=== PATIENT | male | born 1960 | race Caucasian/White ===

== ENCOUNTER 2017-12-18 16:58 | Inpatient (IN) | payer OTHER ==
[2017-12-18 19:43] VITALS: BMI 23.6
--- NOTE | 2017-12-18 21:34 | HP ---
CIWA Score - CIWA Score Nausea/Vomitin Muscle Tremors: 6 Anxiety: 4-Mod. Anxious/Guarded Agitation: 2 Paroxysmal Sweats: 3 Orientation: 0-Oriented Tacttile Disturbances: 0-None Auditory Disturbances: 0-None Visual Disturbances: 0-None Headache: 2-Mild CIWA-Ar Total Score: 19 Admission ROS S - HPI Chief Complaint: Alcohol withdrawal symptoms Allergies/Adverse Reactions: Allergies Allergy/AdvReac Type Severity Reaction Status Date / Time No Known Allergies Allergy Verified 12/18/17 21:30 History of Present Illness: 57 years old male with a long history of alcohol dependence is seeking admission to detox. Patient has been in previous detox and reports insignificant period of sobriety. He has past medical history of HIV+ and HTN. Denies suicide attempt or suicidal ideation at this time. Exam Limitations: No Limitations - Ebola screening Have you traveled outside of the country in the last 21 days: No Have you had contact with anyone from an Ebola affected area: No Have you been sick,other than usual withdrawal symptoms: No Do you have a fever: No - Review of Systems Constitutional: Chills, Loss of Appetite, Malaise, Night Sweats, Changes in sleep EENT: reports: Nose Congestion Respiratory: reports: No Symptoms reported Cardiac: reports: No Symptoms Reported GI: reports: Poor Appetite, Poor Fluid Intake, Abdominal cramping : reports: No Symptoms Reported Musculoskeletal: reports: Back Pain, Muscle Pain, Muscle Weakness Integumentary: reports: No Symptoms Reported Neuro: reports: Tingling, Tremors Endocrine: reports: No Symptoms Reported Hematology: reports: No Symptoms Reported Psychiatric: reports: No Sypmtoms Reported, Orientated x3, Anxious Other Systems: Reviewed and Negative Patient History - Patient Medical History Hx Anemia: No Hx Asthma: No Hx Chronic Obstructive Pulmonary Disease (COPD): No Hx Cancer: No Hx Cardiac Disorders: No Hx Congestive Heart Failure: No Hx Hypertension: Yes Hx Hypercholesterolemia: No Hx Pacemaker: No HX Cerebrovascular Accident: No Hx Seizures: No Hx Dementia: No Hx Diabetes: No Hx Gastrointestinal Disorders: No Hx Liver Disease: No Hx Genitourinary Disorders: No Hx Sexually Transmitted Disorders: Yes (HIV+) Hx Renal Disease (ESRD): No Hx Thyroid Disease: No Hx Human Immunodeficiency Virus (HIV): Yes (diagnosed in 2001) Hx Hepatitis C: No Hx Depression: No Hx Suicide Attempt: No (Denies suicidal ideation at this time) Hx Bipolar Disorder: No Hx Schizophrenia: No - Patient Surgical History Past Surgical History: No - PPD History Previous Implant?: Yes Documented Results: Negative w/o proof Implanted On Prior [facility] Admission?: No PPD to be Administered?: Yes - Reproductive History Patient is a Female of Child Bearing Age (11 -55 yrs old): No (MALE) - Smoking Cessation Smoking history: Current every day smoker Have you smoked in the past 12 months: Yes Aproximately how many cigarettes per day: 10 Hx Chewing Tobacco Use: No Initiated information on smoking cessation: Yes 'Breaking Loose' booklet given: 12/18/17 Family Disease History - Family Disease History Family History: Denies Admission Physical Exam [facility] - Vital Signs Vital Signs: Vital Signs - 24 hr 12/18/17 19:41 Temperature 97 F L Pulse Rate 114 H Respiratory 18 Rate Blood Pressure 144/94 - Physical General Appearance: Yes: Moderate Distress HEENTM: Yes: EOMI, Normal Voice, OSVALDO, Nasal Congestion Respiratory: Yes: Lungs Clear, Normal Breath Sounds, No Respiratory Distress Neck: Yes: Supple Breast: Yes: Breast Exam Deferred Cardiology: Yes: Regular Rhythm, Regular Rate, S1, S2 Abdominal: Yes: Normal Bowel Sounds, Soft Genitourinary: Yes: Within Normal Limits Back: Yes: Normal Inspection Extremities: Yes: Normal Inspection Neurological: Yes: Alert, Normal Mood/Affect Integumentary: Yes: Warm Lymphatic: Yes: Within Normal Limits - Diagnostic (1) Alcohol dependence with uncomplicated withdrawal Current Visit: Yes Status: Chronic (2) Nicotine dependence Current Visit: Yes Status: Chronic (3) HTN (hypertension) Current Visit: Yes Status: Chronic (4) HIV (human immunodeficiency virus infection) Current Visit: Yes Status: Chronic Cleared for Admission [facility] - Detox or Rehab [facility] Level of Care: Medically Managed Detox Regimen/Protocol: Librium [facility] Breath Alcohol Content Breath Alcohol Content: 0.270 Urine Drug Screen - Results Drug Screen Negative: Yes
[2017-12-18] MEDS ORDERED: guaiFENesin/D-METHORPHAN HB 10 ML UNIT-DOSE CUPS PO PRN (21:43)
[2017-12-18] MEDS ORDERED: IBUPROFEN 400 MG TABLET (FP) PO PRN (21:43)
[2017-12-18] MEDS ORDERED: MENTHOL/PHENOL 1 EACH UD MM PRN (21:43)
[2017-12-18] MEDS ORDERED: MAG HYDROX/AL HYDROX/SIMETH 30 ML UNIT-DOSE CUP PO PRN (21:43)
[2017-12-18] MEDS ORDERED: MAGNESIUM HYDROX 2400MG/30ML ORAL SUSPENSION 30 ML CUP PO PRN (21:43)
[2017-12-18] MEDS ORDERED: NICOTINE POLACRILEX 2 MG GUM BUC PRN (21:43)
[2017-12-18] MEDS ORDERED: MAGNESIUM CITRATE 300 ML BOTTLE PO PRN (21:43)
[2017-12-18] MEDS ORDERED: LOPERAMIDE HCL 2 MG CAPSULE PO PRN (21:43)
[2017-12-18] MEDS ORDERED: chlordiazePOXIDE HCL 25 MG CAPSULE PO PRN (21:43)
[2017-12-18] MEDS ORDERED: ACETAMINOPHEN 325 MG TABLET (FP) PO PRN (21:43)
[2017-12-18] MEDS ORDERED: P-EPHED 60MG/TRIPROLIDI 2.5MG TABLET PO PRN (21:43)
[2017-12-19] MEDS: THIAMINE HCL 100 MG TABLET (FP) PO SCH ×2 (01:19→22:36)
[2017-12-19] MEDS: chlordiazePOXIDE HCL 25 MG CAPSULE PO SCH ×5 (01:19→22:36)
[2017-12-19] MEDS ORDERED: cloNIDine HCL 0.1 MG TABLET PO ONE (06:49)
[2017-12-19] MEDS ORDERED: EMTRICITABINE/TENOFOV ALAFENAM (DESCOVY) TABLET PO SCH (10:00)
[2017-12-19] MEDS ORDERED: DOLUTEGRAVIR SODIUM 50 MG TABLET PO SCH (10:00)
[2017-12-19 10:25] LABS: HEMATOCRIT 41.4 % (35.4-49); HEMOGLOBIN 13.7 GM/dL (11.7-16.9); MCH 34.8 pg (25.7-33.7); MCHC 33.1 g/dl (32.0-35.9); MEAN CELL VOLUME 105.1 fl (80-96); MEAN PLT VOLUME 8.5 fl (7.5-11.1); PLATELET COUNT 100 K/MM3 (134-434); RBC 3.94 M/mm3 (4.00-5.60); RDW 16.1 % (11.9-15.9); WHITE BLOOD COUNT 9.7 K/mm3 (4.0-10.0)
[2017-12-19 10:31] LABS: CHLORIDE 94 mmol/L (98-107); POTASSIUM 3.4 mmol/L (3.5-5.1); SODIUM 136 mmol/L (136-145)
[2017-12-19] MEDS: PRENATAL VITAMINS W/ FOLIC ACID TABLET (FP) PO SCH (10:44)
[2017-12-19] MEDS: NICOTINE 14 MG/24 HOURS TOPICAL PATCH TD SCH (10:45)
[2017-12-19] MEDS: amLODIPine BESYLATE 10 MG TABLET (FP) PO SCH (10:45)
[2017-12-19 10:53] LABS: ALBUMIN 4.1 g/dl (3.4-5.0); ALK PHOS 160 U/L (45-117); ANION GAP 19 (8-16); BILIRUBIN,TOTAL 0.9 mg/dL (0.2-1.0); BLOOD UREA NITROGEN 10 mg/dL (7-18); CALCIUM 9.5 mg/dL (8.5-10.1); CO2 23 mmol/L (21-32); CREATININE 0.7 mg/dL (0.7-1.3); GLUCOSE,RANDOM 117 mg/dL (74-106); SGOT/AST 96 U/L (15-37); SGPT/ALT 63 U/L (12-78)
[2017-12-19] MEDS ORDERED: DOLUTEGRAVIR SODIUM 50 MG PO SCH (12:15)
--- NOTE | 2017-12-19 12:53 | PN ---
[facility] CIWA - CIWA Score Nausea/Vomitin Muscle Tremors: 7-Severe,w/o Arm Extended Anxiety: 3 Agitation: 0-Normal Activity Paroxysmal Sweats: 2 Orientation: 0-Oriented Tacttile Disturbances: 2-Mild Itch/Numbness/Burn Auditory Disturbances: 0-None Visual Disturbances: 0-None Headache: 0-None Present CIWA-Ar Total Score: 19 BHS Progress Note (SOAP) Subjective: Tremors, Sweating, Body Aches, Vomiting. Objective: PT. A & O X 3, OBSERVED AMBULATING ON UNIT. NO ACUTE DISTRESS. PT. DENIES CHEST PAIN. 12/19/17 12:49 Vital Signs Temperature 96.4 F L 12/19/17 09:39 Pulse Rate 121 H 12/19/17 09:39 Respiratory Rate 20 12/19/17 09:39 Blood Pressure 139/97 12/19/17 09:39 O2 Sat by Pulse Oximetry (%) Laboratory Tests 12/19/17 12/19/17 07:40 07:40 WBC 9.7 RBC 3.94 L Hgb 13.7 Hct 41.4 MCV 105.1 H MCH 34.8 H MCHC 33.1 RDW 16.1 H Plt Count 100 L MPV 8.5 Sodium 136 Potassium 3.4 L Chloride 94 L Carbon Dioxide 23 Anion Gap 19 H BUN 10 Creatinine 0.7 Creat Clearance w eGFR > 60 Random Glucose 117 H Calcium 9.5 Total Bilirubin 0.9 AST 96 H ALT 63 Alkaline Phosphatase 160 H Total Protein 9.0 H Albumin 4.1 LABS NOTED. RPR, UA RESULTS PENDING. 12/19/17 12:51 Assessment: 12/19/17 12:50 WITHDRAWAL SYMPTOMS. HYPOKALEMIA. THROMBOCYTOPENIA. HTN. 12/19/17 12:53 Plan: CONTINUE DETOX. K-DUR, 20 MEQ PO BID. CLONIDINE, 0.1 MG PO BID FOR ELEVATED BP AND FOR SEVERE DETOX SYMPTOMS. INCREASE DAILY PO FLUID INTAKE. REPEAT AST ON 12/21/2017 FOR ELEVATED ADMISSION LEVEL.
[2017-12-19] MEDS ORDERED: POTASSIUM CHLORIDE TABS 20 MEQ TABLET.ER (FP) PO ONE (13:55)
[2017-12-19] MEDS: cloNIDine HCL 0.1 MG TABLET PO SCH ×2 (14:37→22:36)
[2017-12-19] MEDS: DOLUTEGRAVIR SODIUM 50 MG PO SCH (14:37)
[2017-12-19] MEDS: POTASSIUM CHLORIDE TABS 20 MEQ TABLET.ER (FP) PO SCH (17:42)
[2017-12-19 18:26] LABS: URINE APPEARANCE CLEAR; URINE BILIRUBIN NEGATIVE (NEGATIVE); URINE BLOOD NEGATIVE (NEGATIVE); URINE COLOR YELLOW; URINE GLUCOSE (UA) NEGATIVE (NEGATIVE); URINE KETONE NEGATIVE (NEGATIVE); URINE LEUK ESTERASE NEGATIVE (NEGATIVE); URINE NITRITE NEGATIVE (NEGATIVE); URINE UROBILINOGEN NEGATIVE mg/dL (0.2-1.0)
[2017-12-19 19:55] LABS: URINE PROTEIN 2+ (NEGATIVE)
[2017-12-19 20:21] LABS: EPI CELLS RARE /HPF (FEW); GRANULAR CASTS 2 /lpf; URINE MUCUS RARE
[2017-12-20] MEDS: chlordiazePOXIDE HCL 25 MG CAPSULE PO SCH ×3 (06:09→18:07)
[2017-12-20] MEDS: cloNIDine HCL 0.1 MG TABLET PO SCH ×2 (11:02→23:05)
[2017-12-20] MEDS: POTASSIUM CHLORIDE TABS 20 MEQ TABLET.ER (FP) PO SCH ×2 (11:02→18:07)
[2017-12-20] MEDS: amLODIPine BESYLATE 10 MG TABLET (FP) PO SCH (11:02)
[2017-12-20] MEDS: DOLUTEGRAVIR SODIUM 50 MG PO SCH (11:03)
[2017-12-20] MEDS: NICOTINE 14 MG/24 HOURS TOPICAL PATCH TD SCH ×2 (11:03→12:17)
[2017-12-20] MEDS: EMTRICITABINE PO SCH (11:03)
[2017-12-20] MEDS: PRENATAL VITAMINS W/ FOLIC ACID TABLET (FP) PO SCH (11:03)
[2017-12-20] MEDS: TENOFOV ALAFENAM PO SCH (11:03)
--- NOTE | 2017-12-20 16:56 | PN ---
[facility] CIWA - CIWA Score Nausea/Vomitin-No Nausea/No Vomiting Muscle Tremors: 5 Anxiety: 3 Agitation: 3 Paroxysmal Sweats: 3 Orientation: 0-Oriented Tacttile Disturbances: 2-Mild Itch/Numbness/Burn Auditory Disturbances: 0-None Visual Disturbances: 0-None Headache: 0-None Present CIWA-Ar Total Score: 16 S Progress Note (SOAP) Subjective: Tremors, Sweating, Body Aches, Fatigue. Objective: PT. A & O X 3, OBSERVED AMBULATING ON UNIT. NO ACUTE DISTRESS. 12/20/17 16:57 Vital Signs Temperature 97.5 F L 12/20/17 14:00 Pulse Rate 120 H 12/20/17 14:00 Respiratory Rate 20 12/20/17 14:00 Blood Pressure 104/74 12/20/17 14:00 O2 Sat by Pulse Oximetry (%) Laboratory Tests 12/19/17 12/19/17 12/19/17 07:40 07:40 07:40 WBC 9.7 RBC 3.94 L Hgb 13.7 Hct 41.4 MCV 105.1 H MCH 34.8 H MCHC 33.1 RDW 16.1 H Plt Count 100 L MPV 8.5 Sodium 136 Potassium 3.4 L Chloride 94 L Carbon Dioxide 23 Anion Gap 19 H BUN 10 Creatinine 0.7 Creat Clearance w eGFR > 60 Random Glucose 117 H Calcium 9.5 Total Bilirubin 0.9 AST 96 H ALT 63 Alkaline Phosphatase 160 H Total Protein 9.0 H Albumin 4.1 Urine Color Urine Appearance Urine pH Ur Specific [place] Urine Protein Urine Glucose (UA) Urine Ketones Urine Blood Urine Nitrite Urine Bilirubin Urine Urobilinogen Ur Leukocyte Esterase Urine WBC (Auto) Urine RBC (Auto) Ur Epithelial Cells Granular Casts Urine Mucus RPR Titer Nonreactive 12/19/17 17:30 WBC RBC Hgb Hct MCV MCH MCHC RDW Plt Count MPV Sodium Potassium Chloride Carbon Dioxide Anion Gap BUN Creatinine Creat Clearance w eGFR Random Glucose Calcium Total Bilirubin AST ALT Alkaline Phosphatase Total Protein Albumin Urine Color Yellow Urine Appearance Clear Urine pH 5.0 Ur Specific [place] 1.013 Urine Protein 2+ H Urine Glucose (UA) Negative Urine Ketones Negative Urine Blood Negative Urine Nitrite Negative Urine Bilirubin Negative Urine Urobilinogen Negative Ur Leukocyte Esterase Negative Urine WBC (Auto) <1 Urine RBC (Auto) 1 Ur Epithelial Cells Rare Granular Casts 2 Urine Mucus Rare RPR Titer LABS NOTED. Assessment: 12/20/17 16:57 WITHDRAWAL SYMPTOMS. Plan: CONTINUE DETOX. INCREASE DAILY PO FLUID INTAKE.
[2017-12-20] MEDS: chlordiazePOXIDE 5 MG CAPSULE PO SCH (23:04)
[2017-12-20] MEDS: THIAMINE HCL 100 MG TABLET (FP) PO SCH (23:04)
[2017-12-21] MEDS: chlordiazePOXIDE 5 MG CAPSULE PO SCH ×3 (06:15→17:11)
[2017-12-21 10:06] LABS: SGOT/AST 136 U/L (15-37); SGPT/ALT 89 U/L (12-78)
[2017-12-21] MEDS: TENOFOV ALAFENAM PO SCH (10:37)
[2017-12-21] MEDS: POTASSIUM CHLORIDE TABS 20 MEQ TABLET.ER (FP) PO SCH ×2 (10:37→17:11)
[2017-12-21] MEDS: EMTRICITABINE PO SCH (10:37)
[2017-12-21] MEDS: DOLUTEGRAVIR SODIUM 50 MG PO SCH (10:37)
[2017-12-21] MEDS: PRENATAL VITAMINS W/ FOLIC ACID TABLET (FP) PO SCH (10:38)
[2017-12-21] MEDS: cloNIDine HCL 0.1 MG TABLET PO SCH ×2 (10:38→22:34)
[2017-12-21] MEDS: amLODIPine BESYLATE 10 MG TABLET (FP) PO SCH (10:38)
[2017-12-21] MEDS: NICOTINE 14 MG/24 HOURS TOPICAL PATCH TD SCH (10:40)
--- NOTE | 2017-12-21 20:34 | PN ---
BHS Progress Note (SOAP) Subjective: shakes sleep disturbance Objective: 12/21/17 20:33 A & O x 3 Vital Signs Temperature 96.6 F L 12/21/17 17:24 Pulse Rate 111 H 12/21/17 17:24 Respiratory Rate 20 12/21/17 17:24 Blood Pressure 137/96 12/21/17 17:24 O2 Sat by Pulse Oximetry (%) Assessment: 12/21/17 20:34 withdrawal sx Plan: continue detox for d/c tomorrow
[2017-12-21] MEDS: THIAMINE HCL 100 MG TABLET (FP) PO SCH (22:34)
[2017-12-21] MEDS: chlordiazePOXIDE HCL 10 MG CAPSULE PO SCH (22:34)
[2017-12-22] MEDS: chlordiazePOXIDE HCL 10 MG CAPSULE PO SCH (05:26)
[2017-12-22 06:07] VITALS: BP 138/85; PULSE 76; TEMP 98.2
[2017-12-22] MEDS: PRENATAL VITAMINS W/ FOLIC ACID TABLET (FP) PO SCH (09:38)
[2017-12-22] MEDS: POTASSIUM CHLORIDE TABS 20 MEQ TABLET.ER (FP) PO SCH (09:38)
[2017-12-22] MEDS: TENOFOV ALAFENAM PO SCH (09:38)
[2017-12-22] MEDS: DOLUTEGRAVIR SODIUM 50 MG PO SCH (09:38)
[2017-12-22] MEDS: EMTRICITABINE PO SCH (09:38)
[2017-12-22] MEDS: NICOTINE 14 MG/24 HOURS TOPICAL PATCH TD SCH (09:51)
[2017-12-22] MEDS: amLODIPine BESYLATE 10 MG TABLET (FP) PO SCH (09:51)
[2017-12-22] MEDS: cloNIDine HCL 0.1 MG TABLET PO SCH (09:51)
--- NOTE | 2017-12-22 12:02 | DS ---
[facility] Detox Discharge Summary Admission Date: 12/18/17 Discharge Date: 12/22/17 - History Additional Comments: Pt A & O x 3, being d/c home today. Pt states he wants to go home first to keep an appointment with his PMD on 12/24. He will make calls from home to get into [facility] or [facility] programs. Pt was reminded that he can also call [facility] for rehab placement within the 48hours to see about bed availability since he wants to go home first, verbalized understanding Pertinent Past History: HIV - Physical Exam Results Vital Signs: Vital Signs Temperature 98.2 F 12/22/17 06:06 Pulse Rate 76 12/22/17 06:06 Respiratory Rate 16 12/22/17 06:06 Blood Pressure 138/85 12/22/17 06:06 O2 Sat by Pulse Oximetry (%) Pertinent Admission Physical Exam Findings: withdrawal sx - Treatment Hospital Course: Detox Protocol Followed, Detoxed Safely, Responded well, Discharged Condition Good, Rehab Referral Accepted Patient has Accepted a Rehab Referral to: [facility] or [facility], AA meetings - Medication Discharge Medications: Ambulatory Orders Amlodipine Besylate [Norvasc -] 10 mg PO DAILY 12/18/17 Dolutegravir Sodium [Tivicay] 50 mg PO DAILY 12/18/17 Emtricitabine/Tenofov Alafenam [Descovy 200-25 mg Tablet (Nf)] 1 each PO DAILY 12/18/17 Folic Acid - 1 mg PO DAILY 12/18/17 Naltrexone HCl 50 mg PO DAILY 12/18/17 - Diagnosis (1) Alcohol dependence with uncomplicated withdrawal Status: Acute (2) HIV (human immunodeficiency virus infection) Status: Chronic (3) HTN (hypertension) Status: Chronic Qualifiers: Hypertension type: unspecified Qualified Code(s): I10 - Essential (primary ) hypertension (4) Nicotine dependence Status: Chronic Qualifiers: Nicotine product type: cigarettes Substance use status: uncomplicated Qualified Code(s): F17.210 - Nicotine dependence, cigarettes, uncomplicated - AMA Did Patient Leave Against Medical Advice: No
--- NOTE | 2017-12-23 13:38 | EKG ---
Test Reason : Blood Pressure : / mmHG Vent. Rate : 071 BPM Atrial Rate : 071 BPM P-R Int : 128 ms QRS Dur : 088 ms QT Int : 400 ms P-R-T Axes : 056 055 076 degrees QTc Int : 434 ms NORMAL SINUS RHYTHM MINIMAL VOLTAGE CRITERIA FOR LVH, MAY BE NORMAL VARIANT SEPTAL INFARCT , AGE UNDETERMINED ABNORMAL ECG NO PREVIOUS ECGS AVAILABLE Confirmed by MD Dominick, Americo ([id number]) on 12/23/2017 1:37:46 PM Referred By: Confirmed By:Americo Tan MD
== END 2017-12-22 09:53 | disposition home or self-care (01) | DRG 897 ==
LOC: YASAS 16:58 → Y3N 21:11
PROVIDERS: ADMIT Internal Medicine; ATTEND Internal Medicine
PROC: HZ2ZZZZ Detoxification Services for Substance Abuse Treatment (ICD-10-PCS; principal; 2017-12-18)
DX: F10.230 Alcohol dependence with withdrawal, uncomplicated (principal); F17.210 Nicotine dependence, cigarettes, uncomplicated; I10 Essential (primary) hypertension; Z21 Asymptomatic human immunodeficiency virus [HIV] infection status
CPT/HCPCS: 36415; 80053; 81003; 81015; 84450; 84460; 85027; 86593; 93005; 93010; J0735